=== PATIENT | female | born 1975 | race Caucasian/White ===

== ENCOUNTER 2024-08-09 09:17 | Observation (INO) | payer OTHER ==
[~2024-08-09] VITALS: Ht 157.5 cm; Wt 53.5 kg
[2024-08-09] VITALS (10 sets, daily range): BP systolic 107–121; BP diastolic 55–71; PULSE 65–78; RESP 14–19; TEMP 97.3–98.6; O2SAT 98–100
[2024-08-09 10:16] LABS: BASOPHILS # (AUTO) 0.1 (0.0-0.1); BASOPHILS % 1.1 % (0.0-1.0); EOSINOPHILS # (AUTO) 0.1 (0.0-0.4); EOSINOPHILS % 1.7 % (0.0-6.0); LYMPHOCYTES # (AUTO) 1.2 (1.0-3.2); MEAN CORPUSCULAR HGB CONC 29.3 g/dL (31-35); MEAN CORPUSCULAR VOLUME 71.6 fL (81-99); MONOCYTES # (AUTO) 0.7 (0.2-0.8); MONOCYTES % 8.3 % (4.4-11.3); NEUTROPHILS # (AUTO) 6.2 (2.1-6.9); NEUTROPHILS % 74.7 % (38.7-80.0); PLATELET COUNT 445 x10e3/uL (140-360); RED BLOOD COUNT 2.57 x10e6/uL (3.6-5.1); RED CELL DISTRIBUTION WIDTH 18.9 % (11.7-14.4); WHITE BLOOD COUNT 8.35 x10e3/uL (4.8-10.8)
[2024-08-09 10:20] LABS: HEMATOCRIT 18.4 % (34.2-44.1); HEMOGLOBIN 5.4 g/dL (12.0-16.0)
[2024-08-09 10:40] LABS: INR 0.92; PARTIAL THROMBOPLASTIN TIME 26.9 seconds (23.8-35.5); PROTHROMBIN TIME 12.9 seconds (11.9-14.5)
[2024-08-09 10:53] LABS: ALANINE AMINOTRANSFERASE 14 IU/L (0-55); ALBUMIN 3.6 g/dL (3.5-5.0); ALBUMIN/GLOBULIN RATIO 1.2 (0.8-2.0); ALKALINE PHOSPHATASE 43 IU/L (40-150); ANION GAP 11.7 mmol/L (8-16); BILIRUBIN,TOTAL 0.3 mg/dL (0.2-1.2); BLOOD UREA NITROGEN 8 mg/dL (7-26); BUN/CREATININE RATIO 11 (6-25); CALCIUM 8.3 mg/dL (8.4-10.2); CARBON DIOXIDE 20 mmol/L (22-29); CHLORIDE 110 mmol/L (98-107); CREATININE, SERUM 0.74 mg/dL (0.57-1.11); EST GLOMERULAR FILTRATION RATE 98 ML/MIN (>=60); GLUCOSE 97 mg/dL (74-118); POTASSIUM 3.7 mmol/L (3.5-5.1); SODIUM 138 mmol/L (136-145); TOTAL PROTEIN 6.5 g/dL (6.5-8.1)
[2024-08-09 10:58] LABS: TROPONIN I 0.002 ng/mL (0-0.300)
[2024-08-09] MEDS ORDERED: ONDANSETRON HCL INJ 2MG/ML 2ML 2 MG/ML VIAL IV PRN (11:00)
[2024-08-09] MEDS ORDERED: ACETAMINOPHEN 325 MG TAB PO PRN (11:00)
[2024-08-09] MEDS ORDERED: SUMATRIPTAN SUCCINATE 25 MG TAB PO PRN (13:00)
[2024-08-09] MEDS ORDERED: SODIUM CHLORIDE 0.9% 250ML 250 ML ONE ×2 (13:34→20:04)
[2024-08-09] MEDS: SUMATRIPTAN SUCCINATE 25 MG TAB PO ONE (14:04)
[2024-08-09] MEDS ORDERED: SUMATRIPTAN SU100 MG PO (14:30)
[2024-08-09] MEDS: SODIUM CHLORIDE 0.9% 1000ML 1,000 ML IV SCH (17:04)
== END 2024-08-09 23:30 | disposition left against medical advice (07) ==
LOC: ER 09:28 → ERHOLD 10:53 → MED/SURG3 14:22
PROVIDERS: ADMIT Internal Medicine; ATTEND Internal Medicine
DX: D50.0 Iron deficiency anemia secondary to blood loss (chronic) (principal); N92.0 Excessive and frequent menstruation with regular cycle; G43.109 Migraine with aura, not intractable, without status migrainosus; Z53.29 Procedure and treatment not carried out because of patient's decision for other reasons
CPT/HCPCS: 36415; 36430; 76856; 80053; 83690; 84484; 84702; 85025; 85610; 85730; 86850; 86900; 86920; 93005; 99284; G0378; J7030; J7050; P9016